=== PATIENT | female | born 1945 | race Caucasian/White ===

== ENCOUNTER 2016-05-09 11:12 | Outpatient (CLI) | payer MEDICARE, OTHER ==
[~2016-05-09] VITALS: Ht 157.5 cm; Wt 82.3 kg
--- NOTE | ~2016-05-09 | HEMODYNAMI ---
PATIENT:CARL ENNIS MEDICAL RECORD: [id number] : 43 LOCATION:[facility] ADMISSION DATE: 05/09/16 Generatedon:05/09/201615:55 Patient name: CARL ENNIS Patient #: [id number] : 1945 Date of study: 05/09/2016 Page: Of Hemodynamic Procedure Report Patient Data Patient Demographics First Name: CARL Gender: Female Last Name: RAYMON : 1945 Middle Initial: Vidya Age: 70 year(s) Patient #: [id number] Race: Unknown SSN: [id number] Additional ID: [id number] Contact details Address: [address] [place] [address] State: [place] City: [place] Zip code: [address] Past Medical History Allergies Allergen Reaction Date Comments Reported Other allergy 05/09/2016 Bactrum Admission Admission Data Admission Date: 05/09/2016 Admission Time: 11:12 Arrival Date: 05/09/2016 Arrival Time: 0:00 Admit Source: Other Insurance Payor: Medicare Height (in.): 63 BSA: 1.86 (m2) Height (cm.): 160.02 BMI: 32.42 (kg/m2) Weight (lbs.): 183 Weight (kg.): 83.01 Procedure Procedure Types Cath Procedure Diagnostic Procedure [facility] w/Coronaries Aortic Root Angiography Procedure Description Procedure Date Procedure Date: 05/09/2016 Procedure Start Time: 15:31 Procedure End Time: 15:55 Procedure Staff Name Function Jemal Tong MD Performing Physician Lindsey Amador RT Scrub Denice Chery RN Nurse Bird Thompson RT Steel Cutter Kay Lawrence RT Monitor Arabella Donohue RT Monitor Procedure Data Cath Procedure Fluoroscopy Diagnostic fluoroscopy Total fluoroscopy Time: 3 time: 3 min min Diagnostic fluoroscopy Total fluoroscopy dose: dose: 352.06 mGy 352.06 mGy Contrast Material Contrast Material Type Amount (ml) Isovue 300 91 Entry Location Entry Primary Successful Side Size Upsize Upsize Entry Closure Succes sful Closure Location (Fr) 1 (Fr) 2 (Fr) Remarks Device Remarks Femoral Right 5 Fr Exoseal artery Estimated blood loss: 5 ml Diagnostic catheters Device Type Used For End Catheter Placement Cordis 5Fr JL 4.0 LV Angiography Catheter (MP) Cordis 5Fr 3DRC Catheter Right Coronary (MP) Angiography Cordis Infinity 5Fr AR 1 Right Coronary MOD catheter Angiography Cordis 5Fr Pigtail LV Angiography Catheter (MP) Cordis 5Fr Pigtail Aortic Root Catheter (MP) Angiography Procedure Complications No complications Procedure Medications Medication Administration Route Dosage Oxygen NC 2 l/min Benadryl I.V. 50 mg Lidocaine 2% added to field 20 Heparin Flush Bag added to field 2 bags (1000units/500ml NS) 0.9% NaCl I.V. 100 ml/hr Versed I.V. 1 mg Fentanyl I.V. 50 mcg Versed I.V. 0.5 mg Fentanyl I.V. 25 mcg Radial Cocktail added to field 1 syringe (Verapomil 2mg/Nitro 400mcg/Heparin 1500units) Versed I.V. 0.5 mg Fentanyl I.V. 25 mcg Hemodynamics Rest BSA: 1.86 (m2) O2 Consumption: Estimated: 173.05 (ml/min) O2 Consumption indexed : Estimated:93.04 (ml/min/m) Heart Rate: 73 (bpm) Pressure Samples Time Site Value (mmHg) Purpose Heart Use Rate(bpm) 15:47 LV 137/7,20 EDP 73 15:47 AO 142/66(93) Pullback 73 15:47 LV 144/3,25 Pullback 73 Gradients Valve Time Site 1 Site 2 Mean SEP/DFP Peak To Heart Use (mmHg) (sec/min) Peak Rate (mmHg) (bpm) Aortic 15:47 LV AO 8 20 2 73 144/3,25 142/66(93) Calculations Valve P-P Mean Valve Index Valve Source Name Gradient Area Flow (cm2) Aortic 2 8 2 8 Snapshots Pre Cath Intra NCS Post Cath Vital Signs Time Heart Resp SPO2 NIBP (mmHg) Rhythm Pain Sedation Rate (ipm) (%) Status Level (bpm) 15:25:53 64 14 94 165/87(136) NSR 0 (11) 10(A) , No pain 15:30:17 66 19 95 143/73(121) NSR 0 (11) 10(A) , No pain 15:34:40 64 16 94 139/72(107) NSR 0 (11) 9(A) , No pain 15:38:56 67 21 95 123/71(107) NSR 0 (11) 9(A) , No pain 15:43:16 70 15 94 139/75(110) NSR 0 (11) 9(A) , No pain 15:47:46 72 15 93 133/62(91) NSR 0 (11) 9(A) , No pain 15:52:15 71 16 94 138/70(107) NSR 0 (11) 9(A) , No pain 15:53:51 71 17 95 129/71(99) NSR 0 (11) 10(A) , No pain Medications Time Medication Route Dose Verified Delivered Reason Notes E ffectiveness by by 15:24:23 Oxygen NC 2 l/min Jemal Buffie used for Ran Chery RN procedure 15:24:36 Benadryl I.V. 50 mg Jemal Buffie used for Ran Chery RN procedure 15:24:43 Lidocaine 2% added 20ml Jemal Jemal for local to vial Ran Tong MD anesthetic field 15:24:48 Heparin Flush added 2 bags Jemal Jemal used for Bag to Ran Tong MD procedure (1000units/500ml field NS) 15:24:57 0.9% NaCl I.V. 100 Jemal Buffie Per ml/hr Ran Chery RN physician 15:26:59 Versed I.V. 1 mg Jemal Buffie for Ran Chery RN sedation 15:27:05 Fentanyl I.V. 50 mcg Jemal Buffie for Ran Chery RN sedation 15:32:58 Versed I.V. 0.5 mg Jemal Buffie for Ran Chery RN sedation 15:33:03 Fentanyl I.V. 25 mcg Jemal Buffie for Ran Chery RN sedation 15:35:11 Radial Cocktail added 1 Jemal Buffie wasted, (Verapomil to syringe Ran Chery RN unable 2mg/Nitro field to 400mcg/Heparin obtain 1500units) radial access 15:46:13 Versed I.V. 0.5 mg Jemal Buffie for Tong MD Chery RN sedation 15:46:16 Fentanyl I.V. 25 mcg Jemal Galdamez for Ran Chery RN sedation Procedure Log Time Note 15:04:25 Diagnostic Cath Status : Elective 15:12:09 Patient Height : 160.02 cm 15:12:20 Patient Weight : 83.01 kg 15:12:25 Arrival Date: 05/09/2016 12:00:00 AM 15:12:28 Admit Source: Other 15:12:37 Insurance Payor : Medicare 15:13:09 Bird Thompson RT(R) sent for patient. Start room use. 15:13:22 Time tracking: Regular hours 15:13:26 Plan of Care:Hemodynamics will remain stable., Cardiac rhythm will remain stable., Comfort level will be maintained., Respiratory function will remain adequate., Patient/ family verbilizes understanding of procedure., Procedure tolerated without complication., Recovers from procedure without complications.. 15:13:32 Patient received from Outpatients to [facility] 2 Alert and oriented. Tansferred to table in Supine position. 15:13:33 Warm blankets applied, and igor hugger turned on for patient comfort. 15:13:34 Correct patient and procedure confirmed by team. 15:13:56 H&P Date Dictated: 04/21/2017 Within 30 days and on chart., H&P Addendum completed by physician on day of procedure. (MUST COMPLETE FOR ALL OUTPATIENTS). 15:14:00 Pre-procedure instructions explained to patient. 15:14:02 Family in waiting room. 15:14:04 Patient NPO since Midnight. 15:14:22 Patient allergic to Other allergyBactrum 15:14:25 Is the patient allergic to Iodine/contrast media? No. 15:14:29 Was the patient premedicated? No 15:14:34 Is patient on blood thinner?No 15:14:49 Patient diabetic? No. 15:14:58 Snore? Yes 15:15:04 Sleep apnea? No 15:15:06 Deviated septum? No 15:15:07 Opens mouth fully? Yes 15:15:08 Sticks out tongue? Yes 15:15:16 Dentures? Yes tight 15:23:46 Patient pain scale 0/10 ?. 15:23:52 IV patent on arrival in left forearm with 0.9% NaCl at KVO. 15:24:08 Right Radial & Right Groin area was prepped with chlora-prep and draped in sterile fashion 15:24:10 Alarms reviewed by R. N. 15:24:10 Sharps counted by scrub and verified by R.N. 15:24:12 Physician paged 15::23 Oxygen 2 l/min NC was given by Denice Chery RN; used for procedure; 15:24:24 Vital chart was started 15:24:36 Benadryl 50 mg I.V. was given by Denice Chery RN; used for procedure; 15::43 Lidocaine 2% 20ml vial added to field was given by Jemal Tong MD; for local anesthetic; 15:24:48 Heparin Flush Bag (1000units/500ml NS) 2 bags added to field was given by Jemal Tong MD; used for procedure; 15::57 0.9% NaCl 100 ml/hr I.V. was given by Denice Chery RN; Per physician; 15::05 Physician arrived 15::06 --------ALL STOP TIME OUT------ 15::06 Final Timeout: patient, procedure, and site verified with staff and physician. All members of the team are in agreement. 15:26:09 Right Radial & Right Groin site verified by team. 15:26:16 Physical assessment completed. ASA score P 2 - A patient with mild systemic disease as per Jemal Tong MD. 15:26:20 Sedation plan: IV Moderate Sedation Versed, Fentanyl 15::33 Use device set Radial Dx 15::34 Acist Syringe opened to sterile field. 15:26:35 Cardinal Cath Pack opened to sterile field. 15::35 Bag Decanter opened to sterile field. 15:26:36 Terumo 6Fr Slender Glidesheath opened to sterile field. 15:26:37 St Marcus 260cm J .035 wire opened to sterile field. 15:26:37 Acist Hand Control opened to sterile field. 15:26:39 Acist Manifold opened to sterile field. 15:26:42 IV Extension Set opened to sterile field. 15:26:51 Cook 21G 4cm Radial Needle opened to sterile field. 15::59 Versed 1 mg I.V. was given by Denice Chery RN; for sedation; 15:27:05 Fentanyl 50 mcg I.V. was given by Denice Chery RN; for sedation; 15:28:48 Zero performed for pressure channel P1 15:31:11 Procedure started. 15:31:11 Full Disclosure recording started 15:31:26 Local anesthetic to right radial artery with Lidocaine 2% by Jemal Tong MD.INITIAL ACCESS ONLY 15:32:58 Versed 0.5 mg I.V. was given by Denice Chery RN; for sedation; 15:33:03 Fentanyl 25 mcg I.V. was given by Denice Chery RN; for sedation; 15:34:59 Use device set Femoral Dx 15:35:03 Tegaderm 4 x 4 opened to sterile field. 15:35:09 Terumo 5Fr Capron Sheath opened to sterile field. 15:35:11 Radial Cocktail (Verapomil 2mg/Nitro 400mcg/Heparin 1500units) 1 syringe added to field was given by Denice Chery RN; ; wasted, unable to obtain radial access 15:35:37 Cordis Infinity 5Fr Multipack catheter opened to sterile field. 15:36:03 Local anesthetic to right femoral artery with Lidocaine 2% by Jemal Tong MD.ADDITIONAL ACCESS 15:36:17 A 5 Fr sheath was inserted into the Right Femoral artery 15:36:40 J wire advanced. 15:38:43 A Cordis 5Fr JL 4.0 Catheter (MP) was advanced over the wire and used for LV Angiography. 15:40:58 Catheter removed. 15:41:20 A Cordis 5Fr 3DRC Catheter (MP) was advanced over the wire and used for Right Coronary Angiography. unable to cannulate 15:44:20 Catheter removed. 15:44:35 A Cordis Infinity 5Fr AR 1 MOD catheter was advanced over the wire and used for Right Coronary Angiography. 15:45:50 Catheter removed. 15:45:57 A Cordis 5Fr Pigtail Catheter (MP) was advanced over the wire and used for LV Angiography. 15:46:13 Versed 0.5 mg I.V. was given by Denice Chery RN; for sedation; 15:46:16 Fentanyl 25 mcg I.V. was given by Denice Chery RN; for sedation; 15:46:27 Lindsey Amador RT(R) was relieved by Arabella Donohue RT(R) as monitoring person 15:47:11 LV gram done using FLORES 15:47:12 LV hemodynamics recorded. 15:47:15 Injector settings: Ml/sec: 10, Volume: 20, 15:47:31 EF : 60 % 15:49:00 A Cordis 5Fr Pigtail Catheter (MP) was advanced over the wire and used for Aortic Root Angiography. 15:49:12 Catheter removed. 15:49:33 Cordis 5Fr Exoseal opened to sterile field. 15:50:08 Sheath removed intact; hemostasis achieved with Exoseal to the Right Femoral artery. 15:50:10 Procedure ended.(Physican Out) 15:50:19 Fluoroscopy time 03.00 minutes. 15:50:24 Fluoroscopy dose: 352.06 mGy 15:50:24 Flurop Dose total: 352.06 15:50:28 Contrast amount:Isovue 300 91ml. 15:50:29 Sharps counted by scrub and verified by R.N. 15:50:31 Insertion/operative site no bleeding no hematoma. 15:50:34 Post-op/insertion site Right Femoral artery dressed using a 4 x 4 and Tegaderm. 15:50:38 Post right femoral artery:stable, clean and dry 15:50:39 Post Procedure Pulses reassessed and unchanged 15:50:42 Post-procedure physical assessment completed. ASA score P 2 - A patient with mild systemic disease as per Jemal Tong MD. 15:50:44 Post procedure rhythm: unchanged. 15:50:46 Estimated blood loss: 5 ml 15:50:48 Post procedure instruction explained to patient.Patient verbalizes understanding. 15:50:48 Patient needs reinforcement of post procedure teaching. 15:50:56 Procedure type changed to Cath procedure, Diagnostic procedure, LHC, LHC w/Coronaries, Aortic Root Angiography 15:51:02 Procedure Complication : No complications 15:55:08 Procedure and supply charges have been captured, reviewed, submitted and are correct. 15:55:09 Vital chart was stopped 15:55:09 See physician's report for complete and final results. 15:55:11 Report given to Outpatients. 15:55:14 Patient transfered to Outpatients with [facility]. 15:55:15 Procedure ended. 15:55:15 Full Disclosure recording stopped 15:55:28 End room use (Document Last) Device Usage Item Name Manufacture Quantity Catalog Hospital Part Current Minimal Lot# / Number Charge Number Stock Stock Serial# Code Acist Acist 2 58904 425411 725372 504979 20 Syringe [employer] Cardinal Cardinal 2 [id number] 88751 340735 5 Cath Pack Health Bag Microtek 2 2002S 4798014 11098 061042 5 Decanter [employer] Inc. Terumo 6Fr Terumo 1 [id number] 657058 275098 103425 [address] Marcus 2 818470 274793 574073 193131 30 260cm J .035 wire Acist Hand Acist 2 19847 971966 582529 655430 5 Control [employer] Inc Acist Acist 2 34718 099760 205932 815638 5 Manifold Medical [employer] Inc IV Hospira 1 36096-55 548495 18234 789796 5 Extension Set Cook 21G Cook Medical 2 [id number] 961165 280384 5 4cm Radial Needle Tegaderm 4 3M 2 1626W 654715 970840 849430 5 x 4 Terumo 5Fr Terumo 1 [id number] 090303 784754 589406 40 Capron Sheath Cordis Cardinal 1 [id number] 763032 76740 019378 30 Inf[employer] Health 5Fr Multipack catheter Cordis 5Fr Cardinal 1 [id number] 5 JL 4.0 Health Catheter (MP) Cordis 5Fr Cardinal 1 997305 5 3DRC Health Catheter (MP) Cordis Cardinal 1 [id number] 759481 847309 8735424 15 Infinity Health 5Fr AR 1 MOD catheter Cordis 5Fr Cardinal 1 180224 5 Pigtail Health Catheter (MP) Cordis 5Fr Cardinal 1 EX500 213837 315692 624083 10 [facility] Signature Audit [place] Stage Time Signature Unsigned Intra-Procedure 05/09/2016 Arabella 3:55:40 PM Counts RT(R) Signatures Monitor : Kay Lawrence Signature : RT Date : Time : Monitor : Arabella Signature : Counts RT Date : Time : [address] [place] [address]
[2016-05-09 12:18] LABS: BASOPHILS 0.4 % (0.0-2.0); EOSINOPHILS 5.7 % (0-7); HEMATOCRIT 42.9 % (36.0-48.0); HEMOGLOBIN 14.2 g/dL (12-16); IMMATURE GRANULOCYTES 0.3 % (0-5); LYMPHOCYTES 37.2 % (15-50); MCHC 33.1 g/dL (31.0-37.0); MCV 93.7 fL (80.0-100.0); MEAN PLATELET VOLUME 10.5 fL (7.4-10.4); MONOCYTES 10.5 % (2-11); NEUTROPHILS 45.9 % (40-80); PLATELET COUNT 203 10x3/uL (130-400); RBC 4.58 10x6/uL (4.00-5.40); RDW 13.4 % (11.5-14.5); WBC 6.9 10x3/uL (4.8-10.8)
[2016-05-09 12:31] LABS: CALC OSMOLALITY 283 mosm/kg (275-300); CALCIUM 9.5 mg/dL (8.5-10.1); CARBON DIOXIDE 28.4 mmol/L (21.0-32.0); CHLORIDE - SERUM 104 mmol/L (98-107); CREATININE - SERUM 0.8 mg/dL (0.6-1.3); GLUCOSE 111 mg/dL (74-106); POTASSIUM - SERUM 3.6 mmol/L (3.5-5.1); SODIUM 141 mmol/L (136-145); UREA NITROGEN 18 mg/dL (7-18); eGFR NON AFRICAN AMERICAN 75 mL/min (90-120)
[2016-05-09] MEDS ORDERED: HYDROCHLOROTH12.5 M1 PO (13:38)
[2016-05-09] MEDS ORDERED: K-DUR20 MEQ PO (13:39)
[2016-05-09] MEDS ORDERED: MAG-OXIDE400 MG PO (13:39)
[2016-05-09] MEDS ORDERED: EFFEXOR XR37.5 MG PO (13:40)
[2016-05-09] MEDS ORDERED: DIOVAN320 MG PO (13:41)
[2016-05-09] MEDS ORDERED: NORVASC5 MG PO (13:41)
[2016-05-09] MEDS ORDERED: SYNTHROID112 MCG PO (13:41)
[2016-05-09] MEDS ORDERED: PEPCID20 MG PO (13:42)
[2016-05-09] MEDS ORDERED: BAYER CHEWABLE81 MG PO (13:42)
[2016-05-09 14:36] VITALS: BP 151/73; Ht 157.5 cm; Wt 82.3 kg
--- NOTE | 2016-05-09 16:27 | NUR ---
NAVA HAN AND PLACED ON POST OP SHEET
--- NOTE | 2016-05-09 19:02 | NUR ---
1820 IV DC WITH CATHER TIP INTACT , NO BLEEDING NOTED AT SITE
--- NOTE | 2016-05-29 15:45 | OP ---
PATIENT NAME: CARL ENNIS MEDICAL RECORD: [id number] :43 LOCATION:D.CAT ADMISSION DATE: SURGEON: KAREN BEAR M.D. DATE OF OPERATION: 05/09/2016 REFERRING PHYSICIAN: Bobby Boyer at [place], [place]. PROCEDURES PERFORMED: 1. Selective coronary angiography. 2. Left heart catheterization with ventriculogram. 3. Aortic root injection. INDICATION: A 70-year-old presents with worsening dyspnea. Recent echo revealed moderate aortic insufficiency. EQUIPMENT USED: A 5-Libyan JL4, AR1, pigtail catheter. TECHNIQUE: A 5-Libyan sheath was inserted in retrograde fashion in the right common femoral artery. Next, selective coronary angiography was performed in standard 5-Libyan JL4 and AR1 catheters. Left heart catheterization was performed using pigtail catheter. The aortic root injection performed using pigtail catheter as well. PROCEDURE PERFORMED: 1. Selective coronary angiography. 2. Left heart catheterization with ventriculogram. 3. Aortic root injection. CORONARY ANATOMY: 1. Left main: Left main trunk is large in caliber. It gives rise to the LAD and circumflex. There is no obstruction. 2. LAD: This is a large caliber vessel extending to the apex. It is a smooth-walled vessel. It is angiographically normal. The first diagonal branch has mild irregularities, but nothing worse than 20%. 3. Circumflex: This vessel is large in caliber. It provides the large lateral branch in the mid segment. The ostium of the circumflex appears to have a smooth 40% stenosis. 4. Right coronary: This vessel is large in caliber and dominant. It provides the PDA and distal segment. This vessel is smooth-walled and appears angiographically normal. 5. Left ventricle: Left ventricle is normal in size and function. No wall motion abnormalities are seen. Its ejection fraction is 60%. 6. Ascending aorta: The ascending aorta appears to be upper limits of normal size. There is no evidence of any aortic stenosis. There does appear to be moderate insufficiency seen on injection. IMPRESSION: 1. Mild coronary artery disease. 2. Moderate aortic insufficiency. 3. Normal left ventricular function. RECOMMENDATIONS: I may consider transesophageal echo to further look at her aortic insufficiency. Her coronary artery disease ____ account for her symptoms. OPERATIVE REPORT [id number] CARL ENNIS TRANSINT:[id number] Voice Confirmation ID: [id number] DOCUMENT ID: [id number] KAREN BEAR M.D. at 1545 CC: [id number] DICTATION DATE: 05/09/16 1557 SOCIAL SERVICES TECHNICIAN: 05/09/16 1614 DEP CLI 05/09/16 [place] [id number] [place] [id number]
== END 2016-05-09 18:40 | disposition home or self-care (01) ==
LOC: D.CATH 11:12
PROVIDERS: Internal Medicine Cardiovascular Disease
DX: I35.1 Nonrheumatic aortic (valve) insufficiency (principal); I25.10 Atherosclerotic heart disease of native coronary artery without angina pectoris